=== PATIENT | female | born 1930 | race Caucasian/White ===

== ENCOUNTER 2019-01-23 20:31 | Inpatient (IN) | payer MEDICARE ==
--- NOTE | 2019-01-23 21:45 | XR ---
EXAMINATION TYPE: XR Hip RT and AP Pelvis DATE OF EXAM: 01/23/2019 CLINICAL HISTORY: pain TECHNIQUE: Single view the pelvis is submitted. 2 views of the right hip are also submitted. FINDINGS: No evidence for fracture, dislocation or bony lesion. Joint spaces are well-preserved. S I joints appear symmetric. IMPRESSION: 1. No acute fracture or dislocation seen. ICD 10 NO FRACTURE, INITIAL EVALUATION
--- NOTE | 2019-01-23 23:04 | CT ---
EXAMINATION TYPE: CT hip RT wo con DATE OF EXAM: 01/23/2019 COMPARISON: None HISTORY: Right hip pain after fall. CT DLP: 677.2 mGycm Automated exposure control for dose reduction was used. FINDINGS: Multiple axial sections were obtained from the mid ileum to the mid shaft of the femur without contra st. Right sacroiliac joint appears intact. The acetabulum appears intact. The right side pubic rami appea r intact. There is no evidence of free fluid in the pelvis. The proximal right femur demonstrates a nondisplaced 2.5 cm chip fracture of the greater trochanter. I do not see a fracture of the femoral neck. There is no dislocation. . IMPRESSION: THE EXAM SHOWS A LARGE CHIP FRACTURE OF THE GREATER TROCHANTER OF THE RIGHT FEMUR. NO DISPLACEMENT.
--- NOTE | 2019-01-23 23:14 | ED ---
Fall HPI - General Chief Complaint: Fall Stated Complaint: Fall Time Seen by Provider: 01/23/19 20:31 Source: patient, EMS, RN notes reviewed Mode of arrival: EMS - History of Present Illness Initial Comments: This 88-year-old female who states she tripped in her garage and fell landing on her right hip. She complains of pain and inability to weight-bear secondary to the pain. No other injuries no head neck or back pain this he right hip area pain. Also no pain over her knees or feet or ankles. No other modifying factors at this time she does states she had a little bit of her relief from the medication rendered by paramedics. MD Complaint: fall - Related Data Home Medications Medication Instructions Recorded Confirmed Acetaminophen [Tylenol Arthritis] 1,300 mg PO DAILY 01/23/19 01/23/19 Ascorbic Acid [Vitamin C] 500 mg PO DAILY 01/23/19 01/23/19 Aspirin 81 mg PO DAILY 01/23/19 01/23/19 Azo Complete Feminine Balance 1 tab PO DAILY 01/23/19 01/23/19 Azo Yeast Plus 2 tab PO DAILY 01/23/19 01/23/19 Benazepril [Lotensin] 10 mg PO DAILY 01/23/19 01/23/19 Calcium Carbonate/Vitamin D3 1 tab PO BID 01/23/19 01/23/19 [Calcium 600-Vit D3 200 Tablet] Cinnamon Bark [Cinnamon] 1,000 mg PO DAILY 01/23/19 01/23/19 Cranbery Plus Vitamin C 4,200 mcg PO DAILY 01/23/19 01/23/19 Cyanocobalamin (Vitamin B-12) 1,000 mcg PO DAILY 01/23/19 01/23/19 [Vitamin B-12] Glimepiride [Amaryl] 1 mg PO BID 01/23/19 01/23/19 Glucos Sul 2Kcl/MSM/Chond/C/Mn 2 tab PO DAILY 01/23/19 01/23/19 [Glucosamine Chondroitin Cap] Levothyroxine Sodium [Synthroid] 100 mcg PO DAILY 01/23/19 01/23/19 Loperamide HCl [Imodium A-D] 2 mg PO DAILY 01/23/19 01/23/19 Magnesium Oxide [Raya] 500 mg PO DAILY 01/23/19 01/23/19 Multivit with Calcium,Iron,Min 1 tab PO DAILY 01/23/19 01/23/19 [Women's Multivitamin] [place]-3 Fatty Acids/Fish Oil [Fish 1 tab PO DAILY 01/23/19 01/23/19 Oil 1,000 mg Softgel] Pioglitazone [Actos] 15 mg PO DAILY 01/23/19 01/23/19 Pravastatin Sodium [Pravachol] 40 mg PO HS 01/23/19 01/23/19 Prevagen 1 tab PO DAILY 01/23/19 01/23/19 Spironolactone-Hctz 25-25Mg 1 tab PO Q48H 01/23/19 01/23/19 [Aldactazide 25-25 MG] Ubidecarenone [Co Q-10] 200 mg PO DAILY 01/23/19 01/23/19 Vit C/E/Zn/Coppr/Lutein/Zeaxan 1 cap PO DAILY 01/23/19 01/23/19 [Preservision Areds 2 Softgel] Vitamin E (Dl,Tocopheryl Acet) 400 unit PO DAILY 01/23/19 01/23/19 [Vitamin E] metFORMIN HCL [Glucophage] 1,000 mg PO BID 01/23/19 01/23/19 Allergies Allergy/AdvReac Type Severity Reaction Status Date / Time meperidine [From Demerol] Allergy Vomiting Verified 01/23/19 22:13 Review of Systems ROS Statement: Those systems with pertinent positive or pertinent negative responses have been documented in the HPI. ROS Other: All systems not noted in ROS Statement are negative. Past Medical History Past Medical History: Diabetes Mellitus, Hypertension History of Any Multi-Drug Resistant Organisms: None Reported Past Surgical History: Hysterectomy Past Psychological History: No Psychological Hx Reported Smoking Status: Never smoker Past Alcohol Use History: None Reported Past Drug Use History: None Reported General Exam - General Exam Comments Initial Comments: This is a well-developed sec appearing female who is awake alert oriented 3 Limitations: no limitations General appearance: alert, anxious, in distress Head exam: Present: atraumatic, normocephalic, normal inspection Eye exam: Present: normal appearance, PERRL, EOMI. Absent: scleral icterus, conjunctival injection, periorbital swelling ENT exam: Present: normal exam, mucous membranes moist Neck exam: Present: normal inspection. Absent: tenderness, meningismus, lymphadenopathy Respiratory exam: Present: normal lung sounds bilaterally. Absent: respiratory distress, wheezes, rales, rhonchi, stridor Cardiovascular Exam: Present: regular rate, normal rhythm, normal heart sounds. Absent: systolic murmur, diastolic murmur, rubs, gallop, clicks GI/Abdominal exam: Present: soft, normal bowel sounds. Absent: distended, tenderness, guarding, rebound, rigid Extremities exam: Present: normal inspection, tenderness, normal capillary refill, other (Tenderness palpation over the right hip with no definite step-off or crepitation no definite rotation or shortening. No bruising seen). Absent: full ROM, pedal edema, joint swelling, calf tenderness Back exam: Present: normal inspection Neurological exam: Present: alert, oriented X3, CN II-XII intact Psychiatric exam: Present: normal affect, normal mood Skin exam: Present: warm, dry, intact, normal color. Absent: rash Course Vital Signs 01/23/19 01/23/19 20:44 23:04 Temperature 98 F Pulse Rate 84 81 Respiratory 18 18 Rate Blood Pressure 187/92 173/82 O2 Sat by Pulse 91 L 94 L Oximetry - Reevaluation(s) Reevaluation #1: 01/24/19 00:16 I did initially discuss case with Dr. Roman who is transcription manager for orthopedics the fracture is non-operative. Patient will be admitted to medicine with orthopedic consult. Medical Decision Making - Medical Decision Making I did discuss findings with the patient family as well as with Dr. Roman and with Dr. Pompa. Patient be admitted to medicine with orthopedic consultation. - Radiology Data Radiology results: report reviewed (Initial x-rays are on remarkable however due to the clinical presentation CAT scan was done evidence of a nondisplaced greater trochanteric fracture), image reviewed Disposition Clinical Impression: Fall, Avulsion fracture of right hip Disposition: ADMITTED IP TO THIS [facility] Condition: Stable Referrals: Maury Severino MD [Primary Care Provider] - 1-2 days
--- NOTE | 2019-01-24 00:31 | XR ---
EXAMINATION TYPE: XR chest 1V portable DATE OF EXAM: 01/24/2019 COMPARISON: NONE HISTORY: Fall. Chest pain. TECHNIQUE: Single frontal view of the chest is obtained. FINDINGS: There is no heart failure nor confluent pneumonic infiltrate. Heart is enlarged. There are no hilar masses. There is no pleural effusion. There is no pneumothorax. IMPRESSION: Cardiomegaly. No active cardiopulmonary disease.
[2019-01-24] MEDS ORDERED: NALOXONE 0.4 MG/ML 1 ML VIAL IV PRN (00:35)
[2019-01-24] MEDS ORDERED: ONDANSETRON 4 MG/2 ML VIAL IVP PRN (00:35)
[2019-01-24 01:04] LABS: Basophils # (A) 0.1 k/uL (0-0.2); Basophils % (A) 1 %; Eosinophils # (A) 0.1 k/uL (0-0.7); Eosinophils % (A) 1 %; HCT 45.6 % (34.0-46.0); HGB 14.6 gm/dL (11.4-16.0); Lymphocytes # (A) 0.8 k/uL (1.0-4.8); Lymphocytes % (A) 7 %; MCH 30.7 pg (25.0-35.0); MCHC 31.9 g/dL (31.0-37.0); MCV 96.2 fL (80.0-100.0); Monocytes # (A) 0.4 k/uL (0-1.0); Monocytes % (A) 4 %; Neutrophils # (A) 10.5 k/uL (1.3-7.7); Neutrophils % (A) 87 %; Platelet Count 293 k/uL (150-450); RBC 4.74 m/uL (3.80-5.40); RDW 14.1 % (11.5-15.5); WBC 12.1 k/uL (3.8-10.6)
[2019-01-24 01:09] LABS: Albumin 4.4 g/dL (3.5-5.0); Calcium 10.3 mg/dL (8.4-10.2); Magnesium 2.1 mg/dL (1.6-2.3); Potassium 4.3 mmol/L (3.5-5.1); Total Bilirubin 0.5 mg/dL (0.2-1.3); Total Protein 7.4 g/dL (6.3-8.2)
[2019-01-24 01:18] LABS: Amorphous Sediment,Urine Rare /hpf; Appearance,Urine Clear (Clear); Bacteria,Urine Rare /hpf; Bilirubin,Urine Negative (Negative); Blood,Urine Negative (Negative); Color,Urine Yellow; Glucose,Urine (UA) Negative (Negative); Hyaline Casts,Urine 1 /lpf (0-2); Ketones,Urine 1+ (Negative); Leukocyte Esterase,Urine Small (Negative); Mucus,Urine Rare /hpf; Nitrite,Urine Negative (Negative); PH, Urine 5.5 (5.0-8.0); Protein,Urine Trace (Negative); RBC,Urine 2 /hpf (0-5); Specific Gravity,Urine 1.026 (1.001-1.035); Squamous Epithelial Cell,Urine 1 /hpf (0-4); Transitional Epi Cells,Urine <1 /hpf (0-1); Urobilinogen,Urine <2.0 mg/dL (<2.0); WBC,Urine 19 /hpf (0-5)
[2019-01-24] MEDS: SODIUM CHLORIDE 0.9% 1,000 ML IV SCH (01:37)
[2019-01-24] MEDS: HYDROmorphone 1 MG/ML 1 ML SYRINGE IVP PRN ×2 (01:38→08:22)
[2019-01-24] MEDS: LEVOTHYROXINE 100 MCG TAB PO SCH (06:02)
--- NOTE | 2019-01-24 06:42 | P.HPIM ---
History of Present Illness H&P Date: 01/24/19 Chief Complaint: Right hip pain, fall at home 88-year-old female with history of diabetes, hypertension, hypothyroid Patient reports that she is at her baseline status of health. She lives alone. Patient was doing some house chores involving storing some light summer furn iture and cushions in the garage when she tripped on a cushion that she was carrying and caused her to fall and her garage on her right hip she was able to get up immediately with some pain decided that she walks inside the house to go rest on her couch she was able to do that with a lot of pain. But then she was able to get up again to use the bathroom however when she was trying to get up from the toilet seat she felt excruciating pain in her right hip and was unable to walk anymore that's when she seek help and was brought to the hospital. She denies any loss of consciousness or head injury denies any chest pain or trouble breathing she denies any open cuts or bleeding she denies any visible bruising over her right hip but she reports that the pain is mainly in her right lower back and right leg denies any numbness or tingling denies any weakness in her right lower extremity. In the ED further imaging showed nondisplaced greater trochanteric fracture for which she was admitted for orthopedic evaluation and recommendations Patient's reports another fall 3-4 months ago, which was again accidental fall where she was chasing her cat. At baseline she walks independently however if she leaves the house and anticipate long distances of walking she would use a cane. Review of Systems Pertinent positives as noted in HPI. All other systems were reviewed and are negative Past Medical History Past Medical History: Cancer, Diabetes Mellitus, Hypertension, Thyroid Disorder Additional Past Medical History / Comment(s): arthritis, skin cancer History of Any Multi-Drug Resistant Organisms: None Reported Past Surgical History: Hysterectomy Additional Past Surgical History / Comment(s): skin cancer removal, cataracts, vaginal surgery Past Anesthesia/Blood Transfusion Reactions: No Reported Reaction Past Psychological History: No Psychological Hx Reported Smoking Status: Never smoker Past Alcohol Use History: None Reported Past Drug Use History: None Reported - Past Family History Mother Family Medical History: Hypertension, Liver Disease Father Additional Family Medical History / Comment(s): from paratinitis. Sister(s) Family Medical History: Cancer Additional Family Medical History / Comment(s): from lung cancer Medications and Allergies Home Medications Medication Instructions Recorded Confirmed Type Acetaminophen [Tylenol Arthritis] 1,300 mg PO DAILY 01/23/19 01/23/19 History Ascorbic Acid [Vitamin C] 500 mg PO DAILY 01/23/19 01/23/19 History Aspirin 81 mg PO DAILY 01/23/19 01/23/19 History Azo Complete Feminine Balance 1 tab PO DAILY 01/23/19 01/23/19 History Azo Yeast Plus 2 tab PO DAILY 01/23/19 01/23/19 History Benazepril [Lotensin] 10 mg PO DAILY 01/23/19 01/23/19 History Calcium Carbonate/Vitamin D3 1 tab PO BID 01/23/19 01/23/19 History [Calcium 600-Vit D3 200 Tablet] Cinnamon Bark [Cinnamon] 1,000 mg PO DAILY 01/23/19 01/23/19 History Cranbery Plus Vitamin C 4,200 mcg PO DAILY 01/23/19 01/23/19 History Cyanocobalamin (Vitamin B-12) 1,000 mcg PO DAILY 01/23/19 01/23/19 History [Vitamin B-12] Glimepiride [Amaryl] 1 mg PO BID 01/23/19 01/23/19 History Glucos Sul 2Kcl/MSM/Chond/C/Mn 2 tab PO DAILY 01/23/19 01/23/19 History [Glucosamine Chondroitin Cap] Levothyroxine Sodium [Synthroid] 100 mcg PO DAILY 01/23/19 01/23/19 History Loperamide HCl [Imodium A-D] 2 mg PO DAILY 01/23/19 01/23/19 History Magnesium Oxide [Raya] 500 mg PO DAILY 01/23/19 01/23/19 History Multivit with Calcium,Iron,Min 1 tab PO DAILY 01/23/19 01/23/19 History [Women's Multivitamin] [place]-3 Fatty Acids/Fish Oil [Fish 1 tab PO DAILY 01/23/19 01/23/19 History Oil 1,000 mg Softgel] Pioglitazone [Actos] 15 mg PO DAILY 01/23/19 01/23/19 History Pravastatin Sodium [Pravachol] 40 mg PO HS 01/23/19 01/23/19 History Prevagen 1 tab PO DAILY 01/23/19 01/23/19 History Spironolactone-Hctz 25-25Mg 1 tab PO Q48H 01/23/19 01/23/19 History [Aldactazide 25-25 MG] Ubidecarenone [Co Q-10] 200 mg PO DAILY 01/23/19 01/23/19 History Vit C/E/Zn/Coppr/Lutein/Zeaxan 1 cap PO DAILY 01/23/19 01/23/19 History [Preservision Areds 2 Softgel] Vitamin E (Dl,Tocopheryl Acet) 400 unit PO DAILY 01/23/19 01/23/19 History [Vitamin E] metFORMIN HCL [Glucophage] 1,000 mg PO BID 01/23/19 01/23/19 History Allergies Allergy/AdvReac Type Severity Reaction Status Date / Time meperidine [From Demerol] Allergy Vomiting Verified 01/23/19 22:13 Physical Exam Vitals: Vital Signs Temp Pulse Pulse Resp BP BP Pulse Ox 01/24/19 02:18 96.3 F L 72 16 144/65 91 L 01/24/19 01:50 70 18 158/71 95 01/23/19 23:04 81 18 173/82 94 L 01/23/19 20:44 98 F 84 18 187/92 91 L Intake and Output 01/23/19 01/23/19 01/24/19 14:59 22:59 06:59 Other: Weight 72.575 kg Results CBC & Chem 7: 01/23/19 20:34 01/23/19 20:34 Labs: Abnormal Lab Results - Last 24 Hours (Table) 01/23/19 01/23/19 01/24/19 Range/Units 20:34 20:34 01:03 WBC 12.1 H (3.8-10.6) k/uL Neutrophils # 10.5 H (1.3-7.7) k/uL Lymphocytes # 0.8 L (1.0-4.8) k/uL BUN 38 H (7-17) mg/dL Creatinine 1.05 H (0.52-1.04) mg/dL Glucose 151 H (74-99) mg/dL Calcium 10.3 H (8.4-10.2) mg/dL Urine Protein Trace H (Negative) Urine Ketones 1+ H (Negative) Ur Leukocyte Esterase Small H (Negative) Urine WBC 19 H (0-5) /hpf Urine WBC Clumps Rare H (None) /hpf Amorphous Sediment Rare H (None) /hpf Urine Bacteria Rare H (None) /hpf Urine Mucus Rare H (None) /hpf Thrombosis Risk Factor Assmnt - Choose All That Apply Any of the Below Risk Factors Present?: No Other Risk Factors: Yes Each Risk Factor Represents 3 Points: Age 75 years or older Other congenital or acquired thrombophilia - If yes, enter type in comment: Yes Each Risk Factor Represents 5 Points: Hip, pelvis, or leg fracture (< 1 month) Thrombosis Risk Factor Assessment Total Risk Factor Score: 8 Thrombosis Risk Factor Assessment Level: High Risk Assessment and Plan Assessment: 88-year-old female with history of diabetes mellitus and hypertension and arthritis Sustained an accidental slip and fall resulted in severe pain in her right hip brought into the hospital found to have greater trochanteric fracture nondisplaced admitted for orthopedic evaluation Admitted under observation with anticipated length of stay less than two midnights Plan: Right hip fracture secondary to mechanical trip and fall, x-rays showed nondisplaced greater trochanteric fracture of the right hip hypertension diabetes mellitus Hypothyroid Plan Pain control Orthopedic evaluation Resume home meds Bedrest Hold oral hypoglycemic agents, relying on insulin sliding scale while i npatient Upon discharge patient prefers to be sent home she reports that HER-2 sons lives 1 next door And 1 in the house behind her CODE STATUS: Full code DVT prophylaxis: Heparin subcu 3 times a day Discussed with: Patient, ER, RN Anticipated length of stay less than [address]: Patient prefers to go home if possible, she might require short placement at subacute rehab A total of 60 minutes was spent on the care of this complex patient more than 50% of the time was spent in counseling and care coordination.
[2019-01-24 07:54] LABS: Glucose,Whole Blood 139 mg/dL (75-99)
[2019-01-24] MEDS ORDERED: ACETAMINOPHEN TAB 325 MG TAB PO PRN (08:24)
[2019-01-24] MEDS ORDERED: HYDROmorphone 0.5 MG/0.5 ML SYRINGE IVP PRN (08:24)
[2019-01-24] MEDS: INSULIN ASPART (NovoLOG) 100 UNIT/ML VIAL SQ SCH ×4 (08:33→20:29)
[2019-01-24] MEDS ORDERED: PIOGLITAZONE 15 MG TAB PO SCH (09:00)
[2019-01-24] MEDS ORDERED: NON FORMULARY DRUG (Magnesium Oxide [Phillips] 500 MG) PO SCH (09:00)
[2019-01-24] MEDS ORDERED: NON FORMULARY DRUG (Vit C/E/Zn/Coppr/Lutein/Zeaxan [Preservision Areds 2 Softgel] 1 CAP) PO SCH (09:00)
[2019-01-24] MEDS ORDERED: FISH OIL PO SCH (09:00)
[2019-01-24] MEDS ORDERED: [UNRECOGNIZED DRUG - OTHER] PO SCH (09:00)
[2019-01-24] MEDS ORDERED: OMEGA PO SCH (09:00)
[2019-01-24] MEDS ORDERED: FATTY ACIDS PO SCH (09:00)
[2019-01-24] MEDS ORDERED: ACETAMINOPHEN TAB 325 MG TAB PO SCH (09:00)
[2019-01-24] MEDS ORDERED: NON FORMULARY DRUG (Prevagen 1 TAB) PO SCH (09:00)
[2019-01-24] MEDS ORDERED: NON FORMULARY DRUG (Cinnamon Bark [Cinnamon] 1,000 MG) PO SCH (09:00)
[2019-01-24] MEDS ORDERED: [UNRECOGNIZED DRUG - OTHER] PO SCH (09:00)
[2019-01-24] MEDS ORDERED: GLIMEPIRIDE 1 MG TAB PO SCH (09:00)
[2019-01-24] MEDS ORDERED: metFORMIN 500 MG TAB PO SCH (09:00)
[2019-01-24] MEDS ORDERED: NON FORMULARY DRUG (Ubidecarenone [Co Q-10] 200 MG) PO SCH (09:00)
[2019-01-24] MEDS ORDERED: GLUCOS SUL PO SCH (09:00)
[2019-01-24] MEDS ORDERED: LOPERAMIDE 2 MG CAP PO SCH (09:00)
[2019-01-24] MEDS: CALCIUM CARB-VIT D 500MG-200UN 1 EACH TAB PO SCH ×2 (10:42→20:25)
[2019-01-24] MEDS: ASPIRIN 81 MG PO SCH (10:42)
[2019-01-24] MEDS: ASCORBIC ACID 500 MG TAB PO SCH (10:42)
[2019-01-24] MEDS: CYANOCOBALAMIN 500 MCG TAB PO SCH (10:43)
[2019-01-24] MEDS: HEPARIN SODIUM,PORCINE 5,000 UNIT/ML 1 ML VIAL SQ SCH ×2 (10:43→20:25)
[2019-01-24] MEDS: LISINOPRIL 10 MG TAB PO SCH (10:43)
[2019-01-24] MEDS: VITAMIN E (DL,TOCOPHERYL ACET) 400 UNIT CAP PO SCH (10:44)
[2019-01-24] MEDS: MULTIVITAMINS, THERA 1 EACH TAB PO SCH (10:44)
[2019-01-24 11:44] LABS: Glucose,Whole Blood 127 mg/dL (75-99)
--- NOTE | 2019-01-24 13:48 | P.CNOR ---
History of Present Illness - [facility] Consult date: 01/24/19 Consult reason: fracture History of present illness: Patient is an 88-year-old female seen at bedside this morning in consultation for right hip pain and greater trochanter fracture. She states she tripped in her garage and fell landing on her right hip yesterday, 01/23/19. She had severe pain and difficulty ambulating after the fall thus was brought to the ED. She continues to complain of pain with ROM and inability to weight-bear secondary to the pain. She denies other injuries to head, neck or back. She also denies pain at her knees, ankles or feet. She denies numbness tingling or radicular symptoms. No calf pain, fever chills, chest pain, shortness of breath, dizziness headaches, slurred speech or other. Review of Systems All systems: negative Constitutional: Denies chills, Denies fever Eyes: denies blurred vision, denies pain Ears, nose, mouth and throat: Denies headache, Denies sore throat Cardiovascular: Denies chest pain, Denies shortness of breath Respiratory: Denies cough Gastrointestinal: Denies abdominal pain, Denies diarrhea, Denies nausea, Denies vomiting Genitourinary: Denies dysuria, Denies hematuria Musculoskeletal: Denies myalgias Integumentary: Denies pruritus, Denies rash Neurological: Denies numbness, Denies weakness Psychiatric: Denies anxiety, Denies depression Endocrine: Denies fatigue, Denies weight change Past Medical History Past Medical History: Cancer, Diabetes Mellitus, Hypertension, Thyroid Disorder Additional Past Medical History / Comment(s): arthritis, skin cancer History of Any Multi-Drug Resistant Organisms: None Reported Past Surgical History: Hysterectomy Additional Past Surgical History / Comment(s): skin cancer removal, cataracts, vaginal surgery Past Anesthesia/Blood Transfusion Reactions: No Reported Reaction Past Psychological History: No Psychological Hx Reported Smoking Status: Never smoker Past Alcohol Use History: None Reported Past Drug Use History: None Reported - Past Family History Mother Family Medical History: Hypertension, Liver Disease Father Additional Family Medical History / Comment(s): from paratinitis. Sister(s) Family Medical History: Cancer Additional Family Medical History / Comment(s): from lung cancer Medications and Allergies Home Medications Medication Instructions Recorded Confirmed Type Acetaminophen [Tylenol Arthritis] 1,300 mg PO DAILY 01/23/19 01/23/19 History Ascorbic Acid [Vitamin C] 500 mg PO DAILY 01/23/19 01/23/19 History Aspirin 81 mg PO DAILY 01/23/19 01/23/19 History Azo Complete Feminine Balance 1 tab PO DAILY 01/23/19 01/23/19 History Azo Yeast Plus 2 tab PO DAILY 01/23/19 01/23/19 History Benazepril [Lotensin] 10 mg PO DAILY 01/23/19 01/23/19 History Calcium Carbonate/Vitamin D3 1 tab PO BID 01/23/19 01/23/19 History [Calcium 600-Vit D3 200 Tablet] Cinnamon Bark [Cinnamon] 1,000 mg PO DAILY 01/23/19 01/23/19 History Cranbery Plus Vitamin C 4,200 mcg PO DAILY 01/23/19 01/23/19 History Cyanocobalamin (Vitamin B-12) 1,000 mcg PO DAILY 01/23/19 01/23/19 History [Vitamin B-12] Glimepiride [Amaryl] 1 mg PO BID 01/23/19 01/23/19 History Glucos Sul 2Kcl/MSM/Chond/C/Mn 2 tab PO DAILY 01/23/19 01/23/19 History [Glucosamine Chondroitin Cap] Levothyroxine Sodium [Synthroid] 100 mcg PO DAILY 01/23/19 01/23/19 History Loperamide HCl [Imodium A-D] 2 mg PO DAILY 01/23/19 01/23/19 History Magnesium Oxide [Raya] 500 mg PO DAILY 01/23/19 01/23/19 History Multivit with Calcium,Iron,Min 1 tab PO DAILY 01/23/19 01/23/19 History [Women's Multivitamin] [place]-3 Fatty Acids/Fish Oil [Fish 1 tab PO DAILY 01/23/19 01/23/19 History Oil 1,000 mg Softgel] Pioglitazone [Actos] 15 mg PO DAILY 01/23/19 01/23/19 History Pravastatin Sodium [Pravachol] 40 mg PO HS 01/23/19 01/23/19 History Prevagen 1 tab PO DAILY 01/23/19 01/23/19 History Spironolactone-Hctz 25-25Mg 1 tab PO Q48H 01/23/19 01/23/19 History [Aldactazide 25-25 MG] Ubidecarenone [Co Q-10] 200 mg PO DAILY 01/23/19 01/23/19 History Vit C/E/Zn/Coppr/Lutein/Zeaxan 1 cap PO DAILY 01/23/19 01/23/19 History [Preservision Areds 2 Softgel] Vitamin E (Dl,Tocopheryl Acet) 400 unit PO DAILY 01/23/19 01/23/19 History [Vitamin E] metFORMIN HCL [Glucophage] 1,000 mg PO BID 01/23/19 01/23/19 History Allergies Allergy/AdvReac Type Severity Reaction Status Date / Time meperidine [From Demerol] Allergy Vomiting Verified 01/23/19 22:13 Physical Examination Inspection of the right hipe and lower extremity shows no deformity. There is no erythema, wounds or echymosis. There is pain at the lateral right hip with passive ROM of the hip. This area is mildly tender to palpation. It is not hot to touch. Neurovascular status is intact throughout the lower extremities with gross motor and sensation. There is 2+ DP pulse and less than 2 sec cap refill present. Calves are soft and nontender. Results Xrays and CT of the right hip show a minimal displaced greater trochanter. The remainder of the femur and femoral neck appear to be intact without fracture or lesion. - Labs Labs: Abnormal Lab Results - Last 24 Hours (Table) 01/23/19 01/23/19 01/24/19 Range/Units 20:34 20:34 01:03 WBC 12.1 H (3.8-10.6) k/uL Neutrophils # 10.5 H (1.3-7.7) k/uL Lymphocytes # 0.8 L (1.0-4.8) k/uL BUN 38 H (7-17) mg/dL Creatinine 1.05 H (0.52-1.04) mg/dL Glucose 151 H (74-99) mg/dL POC Glucose (mg/dL) (75-99) mg/dL Calcium 10.3 H (8.4-10.2) mg/dL Urine Protein Trace H (Negative) Urine Ketones 1+ H (Negative) Ur Leukocyte Esterase Small H (Negative) Urine WBC 19 H (0-5) /hpf Urine WBC Clumps Rare H (None) /hpf Amorphous Sediment Rare H (None) /hpf Urine Bacteria Rare H (None) /hpf Urine Mucus Rare H (None) /hpf 01/24/19 01/24/19 Range/Units 07:53 11:42 WBC (3.8-10.6) k/uL Neutrophils # (1.3-7.7) k/uL Lymphocytes # (1.0-4.8) k/uL BUN (7-17) mg/dL Creatinine (0.52-1.04) mg/dL Glucose (74-99) mg/dL POC Glucose (mg/dL) 139 H 127 H (75-99) mg/dL Calcium (8.4-10.2) mg/dL Urine Protein (Negative) Urine Ketones (Negative) Ur Leukocyte Esterase (Negative) Urine WBC (0-5) /hpf Urine WBC Clumps (None) /hpf Amorphous Sediment (None) /hpf Urine Bacteria (None) /hpf Urine Mucus (None) /hpf H & H 01/23/19 Range/Units 20:34 Hgb 14.6 (11.4-16.0) gm/dL Hct 45.6 (34.0-46.0) % Result Diagrams: 01/23/19 20:34 01/23/19 20:34 - Diagnostic results Hip x-ray: report reviewed, image reviewed Hip CT: report reviewed, image reviewed Assessment and Plan (1) Avulsion fracture of right hip Narrative/Plan: She has a fracture of the right greater trochanter. There are no plans for surgical intervention as the weight-bearing portion of the femur appears intact. Recommend continued pain management and protected weightbearing with walker. She may follow up as an outpatient in two weeks. Thank you Current Visit: Yes Status: Acute Priority: Medium Code(s): S72.001A - FRACTURE OF UNSP PART OF NECK OF RIGHT FEMUR, INIT SNOMED Code(s): 068317375 Time with Patient: Less than 30
[2019-01-24] MEDS: HYDROcodone/APAP 5-325MG 1 EACH TAB PO PRN ×2 (15:17→21:20)
[2019-01-24 16:57] LABS: Glucose,Whole Blood 173 mg/dL (75-99)
--- NOTE | 2019-01-24 17:45 | P.PN ---
Progress Note - Text Progress Note Date: 01/24/19 (delayed charting seen at 0815) Hospitalist Interval Note Patient seen and examined at bedside. Pain is better controlled this morning has not been out of bed yet. No nausea or vomiting, no chest pain or shortness of breath Vital signs reviewed General: non toxic, mild distress- due to pain, appears at stated age Derm: warm, dry Head: atraumatic, normocephalic, symmetric Eyes: EOMI, no lid lag, anicteric sclera Mouth: no lip lesion, mucus membranes moist Cardiovascular: S1S2 reg, no murmur, positive posterior tibial pulse bilateral, Lungs: decreased bs bilateral, no rhonchi, no rales , no accessory muscle use Abdominal: soft, nontender to palpation, no guarding, no appreciable organomegaly Psych: Alert, oriented, appropriate affect Assessment/Plan: 1. Right great trochanter avulsian fx- no surgical intervention, pain control, PT/OT, walker, f/u ortho in 2 weeks. This is an update note for patient , for full note on 01/24 see H and P. There is no charge associated with this note.
[2019-01-24 20:20] LABS: Glucose,Whole Blood 109 mg/dL (75-99)
[2019-01-24] MEDS ORDERED: PRAVASTATIN SODIUM 40 MG TAB PO SCH (21:00)
[2019-01-25] MEDS: SODIUM CHLORIDE 0.9% 1,000 ML IV SCH
[2019-01-25] MEDS: HYDROcodone/APAP 5-325MG 1 EACH TAB PO PRN ×3 (03:40→15:53)
[2019-01-25] MEDS: LEVOTHYROXINE 100 MCG TAB PO SCH (05:41)
[2019-01-25 07:21] LABS: Glucose,Whole Blood 122 mg/dL (75-99)
[2019-01-25] MEDS: INSULIN ASPART (NovoLOG) 100 UNIT/ML VIAL SQ SCH ×2 (07:22→12:26)
[2019-01-25] MEDS: ASPIRIN 81 MG PO SCH (07:51)
[2019-01-25] MEDS: VITAMIN E (DL,TOCOPHERYL ACET) 400 UNIT CAP PO SCH (07:51)
[2019-01-25] MEDS: ASCORBIC ACID 500 MG TAB PO SCH (07:51)
[2019-01-25] MEDS: CYANOCOBALAMIN 500 MCG TAB PO SCH (07:51)
[2019-01-25] MEDS: HEPARIN SODIUM,PORCINE 5,000 UNIT/ML 1 ML VIAL SQ SCH (07:52)
[2019-01-25] MEDS: CALCIUM CARB-VIT D 500MG-200UN 1 EACH TAB PO SCH (07:52)
[2019-01-25] MEDS: LISINOPRIL 10 MG TAB PO SCH (07:52)
[2019-01-25] MEDS: MULTIVITAMINS, THERA 1 EACH TAB PO SCH (07:52)
[2019-01-25] MEDS ORDERED: SPIRONOLACTONE-HCTZ 25-25MG 1 EACH TAB PO SCH (09:00)
[2019-01-25 11:16] LABS: Glucose,Whole Blood 165 mg/dL (75-99)
[2019-01-25 12:09] VITALS: BP 187/81; PULSE 66; RESP 17; TEMP 98.1
--- NOTE | 2019-01-25 14:33 | P.DS ---
Providers Date of admission: 01/24/19 00:35 Expected date of discharge: 01/25/19 Attending physician: Maricruz Solorio MD Consults: 01/24/19 00:36 Consult Physician Urgent Consulting Provider: John Roman Consult Reason/Comments: Right greater trochanteric hip fracture Do you want consulting provider notified?: Already Contacted Primary care physician: Maury Severino Hospital Course: Discharge Diagnosis: Greater right trochanter Avulsion fracture, due to mechanical fall DM2 controlled on oral medications hypothyroidism Hypothyroidism Hospital Course: Patient is an 88-year-old female with past medical history of diabetes, hypertension, hypothyroidism, and arthritis who presented in after a fall at home. Initially she been able to write her self but then started having severe pain in her right hip. Initially she underwent an x-ray which did not demonstrate any sign of fracture. This was followed up by a CT which showed a large chip fracture of the greater trochanter of the right femur. She was unable to ambulate in the emergency department and was having uncontrolled pain. She was therefore placed in observation for treatment of her hip fracture. Orthopedics was consulted and recommended protected weightbearing but no surgical intervention. She was able to ambulate with some difficulty and pain. She was seen by physical and occupational therapy who initially recommended subacute rehab. However the patient's son has offered to live with her until she has healed from the hip fracture. They will provide 24-hour care. We have arranged home health care. It appears this is a safe discharge plan at this point in time. I have educated her on transitioning slowly from lying to sitting sitting to standing, taking a break before walking. I've also asked them to remove any area rugs from the house. For her not to go to her sunken living room for the time being. She will follow-up with Dr. Severino in 1-[address] Roman in 1-2 weeks. Patient seen and examined at bedside.No chest pain, SOB, Nausea, vomiting. Pain is better controlled today. Casero is working well. Vital signs reviewed and stable. General: non toxic, no distress, appears at stated age Derm: warm, dry Head: atraumatic, normocephalic, symmetric Eyes: EOMI, no lid lag, anicteric sclera Mouth: no lip lesion, mucus membranes moist Cardiovascular: S1S2 reg, no murmur, positive posterior tibial pulse bilateral, Lungs: CTA bilateral, no rhonchi, no rales , no accessory muscle use Abdominal: soft, nontender to palpation, no guarding, no appreciable organomegaly Ext: no gross muscle atrophy, no edema, no contractures Neuro: CN II-XI grossly intact, no focal neuro deficits Psych: Alert, oriented, appropriate affect A total of 35 minutes of time were spent preparing this complex discharge summary . Patient Condition at Discharge: Stable Plan - Discharge Summary Discharge Rx Participant: No New Discharge Prescriptions: New HYDROcodone/APAP 5-325MG [[place] 5-325] 1 each PO Q6HR PRN #28 tab PRN Reason: Moderate Pain Continue Cinnamon Bark [Cinnamon] 1,000 mg PO DAILY Vit C/E/Zn/Coppr/Lutein/Zeaxan [Preservision Areds 2 Softgel] 1 cap PO DAILY Ubidecarenone [Co Q-10] 200 mg PO DAILY Cyanocobalamin (Vitamin B-12) [Vitamin B-12] 1,000 mcg PO DAILY Ascorbic Acid [Vitamin C] 500 mg PO DAILY Acetaminophen [Tylenol Arthritis] 1,300 mg PO DAILY Magnesium Oxide [Raya] 500 mg PO DAILY Multivit with Calcium,Iron,Min [Women's Multivitamin] 1 tab PO DAILY Glucos Sul 2Kcl/MSM/Chond/C/Mn [Glucosamine Chondroitin Cap] 2 tab PO DAILY Vitamin E (Dl,Tocopheryl Acet) [Vitamin E] 400 unit PO DAILY Starr-3 Fatty Acids/Fish Oil [Fish Oil 1,000 mg Softgel] 1 tab PO DAILY Azo Yeast Plus 2 tab PO DAILY Pioglitazone [Actos] 15 mg PO DAILY Glimepiride [Amaryl] 1 mg PO BID Pravastatin Sodium [Pravachol] 40 mg PO HS Aspirin 81 mg PO DAILY metFORMIN HCL [Glucophage] 1,000 mg PO BID Levothyroxine Sodium [Synthroid] 100 mcg PO DAILY Benazepril [Lotensin] 10 mg PO DAILY Spironolactone-Hctz 25-25Mg [Aldactazide 25-25 MG] 1 tab PO Q48H Calcium Carbonate/Vitamin D3 [Calcium 600-Vit D3 200 Tablet] 1 tab PO BID Discontinued Cranbery Plus Vitamin C 4,200 mcg PO DAILY Prevagen 1 tab PO DAILY Azo Complete Feminine Balance 1 tab PO DAILY Loperamide HCl [Imodium A-D] 2 mg PO DAILY Discharge Medication List Acetaminophen [Tylenol Arthritis] 1,300 mg PO DAILY 01/23/19 [History] Ascorbic Acid [Vitamin C] 500 mg PO DAILY 01/23/19 [History] Aspirin 81 mg PO DAILY 01/23/19 [History] Azo Yeast Plus 2 tab PO DAILY 01/23/19 [History] Benazepril [Lotensin] 10 mg PO DAILY 01/23/19 [History] Calcium Carbonate/Vitamin D3 [Calcium 600-Vit D3 200 Tablet] 1 tab PO BID 01/23/19 [History] Cinnamon Bark [Cinnamon] 1,000 mg PO DAILY 01/23/19 [History] Cyanocobalamin (Vitamin B-12) [Vitamin B-12] 1,000 mcg PO DAILY 01/23/19 [History] Glimepiride [Amaryl] 1 mg PO BID 01/23/19 [History] Glucos Sul 2Kcl/MSM/Chond/C/Mn [Glucosamine Chondroitin Cap] 2 tab PO DAILY 01/23/19 [History] Levothyroxine Sodium [Synthroid] 100 mcg PO DAILY 01/23/19 [History] Magnesium Oxide [Raya] 500 mg PO DAILY 01/23/19 [History] Multivit with Calcium,Iron,Min [Women's Multivitamin] 1 tab PO DAILY 01/23/19 [History] Starr-3 Fatty Acids/Fish Oil [Fish Oil 1,000 mg Softgel] 1 tab PO DAILY 01/23/19 [History] Pioglitazone [Actos] 15 mg PO DAILY 01/23/19 [History] Pravastatin Sodium [Pravachol] 40 mg PO HS 01/23/19 [History] Spironolactone-Hctz 25-25Mg [Aldactazide 25-25 MG] 1 tab PO Q48H 01/23/19 [History] Ubidecarenone [Co Q-10] 200 mg PO DAILY 01/23/19 [History] Vit C/E/Zn/Coppr/Lutein/Zeaxan [Preservision Areds 2 Softgel] 1 cap PO DAILY 01/23/19 [History] Vitamin E (Dl,Tocopheryl Acet) [Vitamin E] 400 unit PO DAILY 01/23/19 [History] metFORMIN HCL [Glucophage] 1,000 mg PO BID 01/23/19 [History] HYDROcodone/APAP 5-325MG [[place] 5-325] 1 each PO Q6HR PRN #28 tab 01/25/19 [Rx] Follow up Appointment(s)/Referral(s): Maury Severino MD [Primary Care Provider] - 1-2 days [facility], [NON-STAFF] - John Roman MD [STAFF PHYSICIAN] - 2 Weeks Activity/Diet/Wound Care/Special Instructions: Activity: as tolerated with walker Diet: carb consistent Special Instructions: Check blood sugar twice daily Home care Protected weight-bearing with walker Follow up with Dr. Roman in office
== END 2019-01-25 17:15 | disposition home health service (06) | DRG 536 ==
LOC: EC 20:31 → 3NMEDONC 01-24 00:35
PROVIDERS: ADMIT Internal Medicine; ATTEND Internal Medicine
DX: S72.111A Displaced fracture of greater trochanter of right femur, initial encounter for closed fracture (principal); E11.9 Type 2 diabetes mellitus without complications; E03.9 Hypothyroidism, unspecified; E78.5 Hyperlipidemia, unspecified; I10 Essential (primary) hypertension; M19.90 Unspecified osteoarthritis, unspecified site; Z79.82 Long term (current) use of aspirin; Z79.84 Long term (current) use of oral hypoglycemic drugs; Z79.890 Hormone replacement therapy; Z79.899 Other long term (current) drug therapy; Z85.828 Personal history of other malignant neoplasm of skin; Z90.710 Acquired absence of both cervix and uterus; Z88.8 Allergy status to other drugs, medicaments and biological substances; Z91.81 History of falling; Z98.42 Cataract extraction status, left eye; Z98.41 Cataract extraction status, right eye; Z96.1 Presence of intraocular lens; Z80.1 Family history of malignant neoplasm of trachea, bronchus and lung; Z82.49 Family history of ischemic heart disease and other diseases of the circulatory system; Z83.79 Family history of other diseases of the digestive system; W01.0XXA Fall on same level from slipping, tripping and stumbling without subsequent striking against object, initial encounter; Y92.008 Other place in unspecified non-institutional (private) residence as the place of occurrence of the external cause
CPT/HCPCS: 36415; 71045; 73502; 80053; 81001; 82550; 83735; 85025; 93005; 96374; 99285